=== PATIENT | female | born 1975 | race Hispanic/Latino ===

== ENCOUNTER 2025-10-22 06:03 | Emergency (ER) | payer SELFPAY ==
[2025-10-22] VITALS (19 sets, daily range): BP systolic 102–136; BP diastolic 45–65
[2025-10-22] MEDS: NSS 1000 IV (06:50)
[2025-10-22 07:13] LABS: HCG, Serum Qualitative Screen Negative
[2025-10-22 07:17] LABS: Hematocrit 21.7 % (37.0-47.0); Hemoglobin 6.1 g/dL (12.0-16.0); Mean Corp Hgb Conc. 28.1 g/dL (33.0-37.0); Mean Corpuscular Volume 62.5 fL (81.0-99.0); Nucleated Red Blood Cells % 0.2 %; Platelet Count 474 10^3/uL (130-400); Red Cell Dist. Width 23.8 % (11.5-14.5)
[2025-10-22 07:20] LABS: ALT (SGPT) 15 U/L (0-35); AST (SGOT) 20 U/L (14-36); Albumin 4.0 g/dl (3.5-5.0); Alkaline Phosphatase 69 U/L (38-126); Blood Urea Nitrogen 17 mg/dl (7-17); Calcium 8.4 mg/dl (8.4-10.2); Carbon Dioxide 21 mmol/L (22-30); Chloride 105 mmol/L (98-107); Glucose 131 mg/dl (70-99); Potassium 3.9 mmol/L (3.5-5.1); Sodium 134 mmol/L (135-145); Total Protein 6.7 g/dl (6.3-8.2); eGFR > 60.00
--- NOTE | 2025-10-22 07:39 | ED.GENMED ---
History of Present Illness
<Jose Lou, DO - Last Filed: 10/22/25 07:39>
General
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
Time Seen by Provider: 10/22/25 06:32
<Dillon White MD, Resident - Last Filed: 10/22/25 15:09>
History of Present Illness
History of Present Illness:
49 yo F PMH tubal ligation p/w heavy vaginal bleeding since onset of menses 3 days prior. She also endorses a syncopal episode in setting of blood loss, lightheadedness, fatigue. denies chest pain, endorses dyspnea.
reports that her vaginal bleeding is not painful. also reports heavy menstrual cycles overall but recent episode is heavier than typical.
she takes no medications, no OCPs.
she follows at [facility], last appointment in 2020.
Past History
<Jose Hobbs Dasha, DO - Last Filed: 10/22/25 07:39>
Past History
ED Past Medical History: None
ED Past Surgical History: None
Social History
Personal:
Living: with family
Employment: Employed
<Dillon White MD, Resident - Last Filed: 10/22/25 15:09>
Social History
Tobacco: Non-smoker
Alcohol: None
Drug: None
Review of Systems
<Dillon White MD, Resident - Last Filed: 10/22/25 15:09>
Review of Systems
Constitutional: Reports no symptoms
EENT: Reports no symptoms
Respiratory: Reports trouble breathing
Cardiac: Reports syncope
ABD/GI: Reports no symptoms
: Reports bleeding
Musculoskeletal: Reports no symptoms
Neurological: Reports weakness
Phy Exam
<Dillon White MD, Resident - Last Filed: 10/22/25 15:09>
Physical Exam
Physical Exam:
VS: 115/63, 86
General: appears fatigued
Optomechanical Technician: bimanual exam showed moderate vaginal bleeding
CV: no murmurs
Pulm: CTAB
Abd: no tenderness to palpation
MSK: no lower extremity edema
Course
<Jose Lou, DO - Last Filed: 10/22/25 07:39>
Orders/Labs/Results
Orders:
Orders
10/22/25 06:33
0.9% Sodium Chloride 1000 ml [Nss] 1,000 ml IV BOLUS
US Pelvis W Transvag Combined Urgent
Reason For Exam: vaginal bleeding
10/22/25 06:34
Test Result ONCE
10/22/25 06:49
Complete Blood Count/With Diff Urgent
Comprehensive Metabolic Panel Urgent
Ferritin Urgent
Comment: ADD ON
HCG, Serum Qualitative Screen Urgent
Iron Urgent
Comment: ADD ON
Total Iron Binding Urgent
Comment: ADD ON
10/22/25 07:00
Type And Crossmatch [Type+Screen] Urgent
10/22/25 07:50
Blood Bank Products [* Blood Bank Products] Urgent
Blood Bank Products: *Packed RBC Leuko (PRBC's
Quantity: 2
Transfuse Today: Yes
Reason: Bleeding
10/22/25 08:38
Tranexamic Acid [Cyklokapron] 1,300 mg PO ONCE ONE
10/22/25 09:03
Add On- LAB Urgent
Tests Added?: iron, TIBC, ferritin
Ferric Gluconate [Ferrlecit] 125 mg 0.9% Sodium Chloride 100 ml [Nss] 100 ml IV NOW
10/22/25 09:06
Ferric Gluconate [Ferrlecit] 125 mg 0.9% Sodium Chloride 100 ml [Nss] 100 ml IV NOW
10/22/25 09:36
Add On- LAB Urgent
Tests Added?: ferritin, iron, TIBC
10/22/25 15:07
Tranexamic Acid [Cyklokapron] 1,300 mg PO ONCE ONE
Abnormal Lab Results
10/22/25 10/22/25
06:49 07:00
WBC 11.7 H 10^3/uL
(4.8-10.8)
RBC 3.47 L 10^6/uL
(4.20-5.40)
Hgb 6.1 L* g/dL
(12.0-16.0)
Hct 21.7 L %
(37.0-47.0)
MCV 62.5 L fL
(81.0-99.0)
MCH 17.6 L pg
(27.0-31.0)
MCHC 28.1 L g/dL
(33.0-37.0)
RDW 23.8 H %
(11.5-14.5)
Plt Count 474 H 10^3/uL
(130-400)
Abs Immat Gran (auto) 0.1 H 10^3/uL
(0-0.05)
Absolute Neuts (auto) 9.4 H 10^3/uL
(1.4-6.5)
Absolute Monos (auto) 0.7 H 10^3/uL
(0.1-0.6)
Neutrophils % 81.0 H %
(42.2-75.2)
Lymphocytes % 11.2 L %
(20.5-51.1)
Sodium 134 L mmol/L
(135-145)
Carbon Dioxide 21 L mmol/L
(22-30)
Creatinine 0.5 L mg/dL
(0.6-1.0)
Glucose 131 H mg/dl
(70-99)
Iron < 20 L ug/dl
(37-170)
Ferritin 3.2 L ng/ml
(6.24-137)
Crossmatch IS Only See Detail
10/22/25 06:49
10/22/25 06:49
Vital Signs
Initial and Last Documented VS:
Initial Vital Signs
Temp Pulse Resp BP Pulse Ox
98.3 F 78 18 104/48 100
10/22/25 06:18 10/22/25 06:18 10/22/25 06:18 10/22/25 06:18 10/22/25 06:18
Last Documented Vital Signs
Temp Pulse Resp BP Pulse Ox
98.2 F 80 18 102/59 100
10/22/25 14:10 10/22/25 14:10 10/22/25 14:10 10/22/25 14:10 10/22/25 14:10
<Dillon White MD, Resident - Last Filed: 10/22/25 15:09>
Orders/Labs/Results
Orders:
Orders
10/22/25 06:33
0.9% Sodium Chloride 1000 ml [Nss] 1,000 ml IV BOLUS
US Pelvis W Transvag Combined Urgent
Reason For Exam: vaginal bleeding
10/22/25 06:34
Test Result ONCE
10/22/25 06:49
Complete Blood Count/With Diff Urgent
Comprehensive Metabolic Panel Urgent
Ferritin Urgent
Comment: ADD ON
HCG, Serum Qualitative Screen Urgent
Iron Urgent
Comment: ADD ON
Total Iron Binding Urgent
Comment: ADD ON
10/22/25 07:00
Type And Crossmatch [Type+Screen] Urgent
10/22/25 07:50
Blood Bank Products [* Blood Bank Products] Urgent
Blood Bank Products: *Packed RBC Leuko (PRBC's
Quantity: 2
Transfuse Today: Yes
Reason: Bleeding
10/22/25 08:38
Tranexamic Acid [Cyklokapron] 1,300 mg PO ONCE ONE
10/22/25 09:03
Add On- LAB Urgent
Tests Added?: iron, TIBC, ferritin
Ferric Gluconate [Ferrlecit] 125 mg 0.9% Sodium Chloride 100 ml [Nss] 100 ml IV NOW
10/22/25 09:06
Ferric Gluconate [Ferrlecit] 125 mg 0.9% Sodium Chloride 100 ml [Nss] 100 ml IV NOW
10/22/25 09:36
Add On- LAB Urgent
Tests Added?: ferritin, iron, TIBC
10/22/25 15:07
Tranexamic Acid [Cyklokapron] 1,300 mg PO ONCE ONE
Abnormal Lab Results
10/22/25 10/22/25
06:49 07:00
WBC 11.7 H 10^3/uL
(4.8-10.8)
RBC 3.47 L 10^6/uL
(4.20-5.40)
Hgb 6.1 L* g/dL
(12.0-16.0)
Hct 21.7 L %
(37.0-47.0)
MCV 62.5 L fL
(81.0-99.0)
MCH 17.6 L pg
(27.0-31.0)
MCHC 28.1 L g/dL
(33.0-37.0)
RDW 23.8 H %
(11.5-14.5)
Plt Count 474 H 10^3/uL
(130-400)
Abs Immat Gran (auto) 0.1 H 10^3/uL
(0-0.05)
Absolute Neuts (auto) 9.4 H 10^3/uL
(1.4-6.5)
Absolute Monos (auto) 0.7 H 10^3/uL
(0.1-0.6)
Neutrophils % 81.0 H %
(42.2-75.2)
Lymphocytes % 11.2 L %
(20.5-51.1)
Sodium 134 L mmol/L
(135-145)
Carbon Dioxide 21 L mmol/L
(22-30)
Creatinine 0.5 L mg/dL
(0.6-1.0)
Glucose 131 H mg/dl
(70-99)
Iron < 20 L ug/dl
(37-170)
Ferritin 3.2 L ng/ml
(6.24-137)
Crossmatch IS Only See Detail
10/22/25 06:49
10/22/25 06:49
Vital Signs
Initial and Last Documented VS:
Initial Vital Signs
Temp Pulse Resp BP Pulse Ox
98.3 F 78 18 104/48 100
10/22/25 06:18 10/22/25 06:18 10/22/25 06:18 10/22/25 06:18 10/22/25 06:18
Last Documented Vital Signs
Temp Pulse Resp BP Pulse Ox
98.2 F 80 18 102/59 100
10/22/25 14:10 10/22/25 14:10 10/22/25 14:10 10/22/25 14:10 10/22/25 14:10
<Dillon White MD, Resident - Last Filed: 10/22/25 15:09>
MDM/Problems Addressed
Differential Diagnosis Includes:
vaginal bleeding, acute blood loss anemia, endometrial pathology
MDM/Problems Addressed:
49 yo F PMH tubal ligation p/w heavy vaginal bleeding
VSS
hemoglobin found to be 6.1 -> 2 units pRBCs ordered
test negative
1 L NS ordered
Pelvic US ordered
Gynecology notified
Update @ 08:20
- per gynecology, will start PO TXA 1300mg TID x5days and recommend admit to medicine, if patient amenable
- first dose of 1300mg PO TXA given at 10/22, 08:53, TID scheduling.
update @ 09:00
- patient is hesitant about receiving blood and requested iv iron. patient is counseled that blood is the superior product to rapidly improve symptoms. per gynecology, they also recommend 2 units.
- added on iron labs.
update @ 10:00
- patient continues to express reluctance to receiving blood transfusion and staying in hospital because she reports not having insurance and is concerned about cost.
- she requested more time to decide on blood transfusion, starting IV iron in the interim.
- per gynecology, TXA and norethindrone should not be given simultaneously. TXA can be given max 5 days at a time. patient can take until she stops bleeding.
- Pelvic US findings (Within the lower endometrial and extending into endocervical canal there is heterogeneous material which measures up to 1.9 cm in thickness and appears to demonstrate internal vascularity) disclosed to patient, patient advised
that she would need outpatient follow-up.
Update @ 12:00
- patient's acquaintances from [facility] arrived at bedside and are translating
- after further discussion, patient is willing to receive blood transfusion
- add on iron studies consistent with iron deficiency anemia (ferritin 3.2; serum iron < 20)
Contact info for close acquaintances who serve as south k[place] translators: Santos Rausch #[phone]; Kanika Talbert #[phone]
Update @ 13:00
- patient would like to be discharged after receiving blood transfusion
- will send script for TXA 1300mg tid x5 days, iron supplements to patient's pharmacy
Plan will be for patient to be discharged after completing 2u pRBCs
Patient to receive another dose of 1300mg TXA PO at approximately 15:00
Discussed with attg, nurse, and patient, all are okay for the discharge orders to be in while she is receiving the 2nd unit of blood.
<Jose Lou, DO - Last Filed: 10/22/25 07:39>
*Pulse Oximetry
SaO2: 100
Oxygen Mode of Delivery: Room air
<Dillon White MD, Resident - Last Filed: 10/22/25 15:09>
*Pulse Oximetry
Patient hypoxic: no
*Critical Care Note
Total Time (30-74mins, 75-104mins- exclusive of procedures): Not Applicable
ED Attending Note
<Jose Lou, DO - Last Filed: 10/22/25 07:39>
ED Attending Note
Patient seen and examined by attending physician: Yes
I performed a history and physical exam of patient and discussed management with resident, I reviewed resident's note and agree with documented findings and plan of care.: Yes
ED Attending Note:
I evaluated the patient at bedside. The patient appears generally weak and appears pale. Hemoglobin is only 6.1. Will be communicating with gynecology.
-
Portions of this chart may have been created with voice recognition software.� Occasional wrong word or��sound alike� substitutions may have occurred due to the inherent limitations of voice recognition software.
Discharge Plan
Departure
Patient Disposition: Home (Routine Discharge)
Date of Disposition: 10/22/25
Time of Disposition: 15:05
Patient with high blood pressure during this ER visit?: No
Condition: Fair
Discharge Problem:
Vaginal bleeding
Prescriptions:
New
ferrous sulfate [Iron (ferrous sulfate)] 325 mg (65 mg iron) tablet
325 mg PO Q OTHER DAY Qty: 30 0RF
tranexamic acid 650 mg tablet
1,300 mg PO TID 5 Days Qty: 30 0RF
No Action
Theragen Tablet
1 tab PO DAILY
ascorbic acid (vitamin C) [Vitamin C] 500 mg Tablet
500 mg PO DAILY
magnesium Tablet
1 tab PO HS
cholecalciferol (vitamin D3) 62.5 mcg (2,500 unit) Capsule
62.5 mcg PO DAILY
Referrals:
Gloria Burrell DO [Active, Hematology / Oncology] - Follow up in 10 days
Referral Note: Please follow-up with outpatient hematology to monitor your hemoglobin level
Martha Ag, [Active, Gynecology] - Follow up in 10 days
Referral Note: Per gynecology, you should arrange for outpatient follow up for a biopsy to rule out endometrial cancer
Activity Restrictions/Additional Instructions:
You presented to the emergency room with vaginal bleeding. Your hemoglobin was found to be extremely low at 6.1; and your iron levels were extremely low consistent with severe iron deficiency anemia.
You received two units of blood transfusion, but you are urged to follow-up with Gynecology (contact information above) in order to complete a biopsy to rule out endometrial cancer. Per the Gynecology recommendations, this can be done outpatient.
You should also follow-up with hematology outpatient and/or your primary care doctor to monitor your hemoglobin levels. Their contact information is also above.
You are being provided with tranexamic acid 1300mg, (650mg x 2 tablets for the dose) taken three times a day for up to a maximum of 5 days or until the bleeding stops. The dose should be taken as close to as 8 hours apart.
You are also being provided a prescription for oral iron supplements.
You should take a bowel regimen like miralax or colace to try to prevent any constipation, miralax and colace can be found over the counter.
Interventions
Interventions:
*General Assessment Last Done: 10/22/25 06:51
*Neglect/Abuse Screening Last Done: 10/22/25 06:53
*ED COVID-19 Vaccine History Last Done: 10/22/25 06:51
*ED Influenza Vaccine History Last Done: 10/22/25 06:51
*Risk Screen - Suicide (C-SSRS) Last Done: 10/22/25 06:18
ED-Female Genitourinary Assessment Last Done: 10/22/25 07:13
Discharge Date and Time
Print Language: PORTUGUESE
[2025-10-22 08:18] LABS: Anisocytosis 1+; Hypochromasia 2+; Normal RBC Morphology No; Ovalocytes 1+; Polychromasia 1+; Target Cells 1+
[2025-10-22] MEDS: CYKLOKAPRON 1300 MG PO ×2 (08:53→16:20)
[2025-10-22 09:53] LABS: Iron < 20 ug/dl (37-170)
[2025-10-22 10:01] LABS: Total Iron Binding Capacity 468 ug/dl (265-497)
[2025-10-22] MEDS: FERRLECIT 110 MG IV (10:02)
[2025-10-22 10:44] LABS: Ferritin 3.2 ng/ml (6.24-137)
== END 2025-10-22 16:57 | disposition home or self-care (01) ==
LOC: EMR 06:03
PROVIDERS: EMERGENCY PHYSICIAN Emergency Medicine
DX: N92.0 Excessive and frequent menstruation with regular cycle (principal); Z32.02 Encounter for pregnancy test, result negative; Z59.71 Insufficient health insurance coverage; D50.9 Iron deficiency anemia, unspecified
CPT/HCPCS: 99285; 36430; 96374; 96361; 76830; 76856; 80053; 82728; 83540; 83550; 84703; 85025; 86850; 86900; 86901; 86920; J2916; P9016